=== PATIENT | female | born 1960 | race Caucasian/White ===

== ENCOUNTER 2022-01-07 10:25 | Emergency (ER) | payer OTHER ==
[~2022-01-07] VITALS: Ht 157.5 cm; Wt 77.1 kg
== END 2022-01-07 11:05 | disposition home or self-care (01) ==
LOC: ER 10:29
DX: R10.30 Lower abdominal pain, unspecified (principal); Z93.3 Colostomy status; I11.0 Hypertensive heart disease with heart failure; I50.9 Heart failure, unspecified; Z88.6 Allergy status to analgesic agent; Z87.891 Personal history of nicotine dependence
CPT/HCPCS: 99282